=== PATIENT | male | born 1985 | race Caucasian/White ===

== ENCOUNTER 2019-04-26 08:02 | Outpatient (CLI) | payer OTHER ==
--- NOTE | 2019-04-26 09:07 | MRI ---
MRI cervical spine: 04/26/2019 COMPARISON: None HISTORY: Posterior lateral neck pain, right greater than left TECHNIQUE: Multiplanar multisequence MR imaging of cervical spine without contrast FINDINGS: The sagittal STIR imaging demonstrates no focal area of osseous marrow edema. Cervical vertebral body height and alignment appears normal. Mild degenerative change at the atlantoa xial interspace. Craniocervical junction and cervicothoracic junction appear intact. C2-3: Unremarkable C3-4: Unremarkable C4-5: Unremarkable C5-6: Unremarkable C6-7: Unremarkable C7-T1: Unremarkable No focal area of abnormal signal intensity identified within the cervical cord. IMPRESSION: Unremarkable cervical spine MRI.
== END 2019-04-26 08:03 | disposition home or self-care (01) ==
LOC: TBSIIMAG 08:02
PROVIDERS: ATTEND Family Medicine
DX: M54.2 Cervicalgia (principal)
CPT/HCPCS: 72141